=== PATIENT | female | born 1985 | race Caucasian/White ===

== ENCOUNTER 2019-12-12 09:16 | Inpatient (IN) ==
[2019-12-12 09:46] LABS: URINE SOURCE VOIDED
[2019-12-12 10:10] LABS: BILIRUBIN URINE NEGATIVE (NEGATIVE); BLOOD URINE NEGATIVE (NEGATIVE); COLOR STRAW; GLUCOSE URINE NEGATIVE (NEGATIVE); KETONE URINE NEGATIVE (NEGATIVE); LEUKOCYTES URINE LARGE (NEGATIVE); NITRITE URINE NEGATIVE (NEGATIVE); PROTEIN URINE NEGATIVE (NEGATIVE); SP GRAVITY URINE 1.007; TURBIDITY URINE HAZY (CLEAR); UROBILINOGEN URINE NORMAL (NORMAL)
--- NOTE | 2019-12-12 11:29 | Diag Imaging Result Doc PS360 ---
EXAM: US OBS COMPLETE > 14 WKS INDICATION: Amniotic fluid volume TECHNIQUE: COMPARISON: 10/18/2019 FINDINGS: There is a single viable intrauterine gestation. The presentation is cephalic. The cervix is closed and measures up to 3.1 cm in length. Limited images of the fetus show no gross anomalies. movement was reported by the e commerce architect. FHR-136 bpm AL-16.93 cm Clinical GA-37 weeks 1 day IMPRESSION: Amnionic fluid index within normal limits. Electronically signed by Adarsh Perez 12/12/2019 11:26 AM
[2019-12-12] MEDS: LR 1,000 ML IV SCH ×2 (13:05→13:45)
[2019-12-12] MEDS ORDERED: PEPCID IV PRN (13:17)
[2019-12-12] MEDS ORDERED: STADOL IV PRN (13:17)
[2019-12-12] MEDS ORDERED: LR 500 ML IV ONE (13:17)
[2019-12-12] MEDS ORDERED: ZOFRAN IV PRN (13:17)
[2019-12-12] MEDS ORDERED: PEPCID PO PRN ×2 (13:17)
[2019-12-12] MEDS ORDERED: REGLAN PO PRN (13:17)
[2019-12-12] MEDS ORDERED: TYLENOL PO PRN (13:17)
[2019-12-12] MEDS ORDERED: KEFZOL 2 GM/D5W 2 GM/50 ML IVPB IV PRN (13:17)
[2019-12-12] MEDS ORDERED: PITOCIN 30 UNITS/NS 30 UNIT/500 ML IV.SOLN IV SCH ×2 (13:30→17:45)
[2019-12-12] MEDS ORDERED: SODIUM CHLORIDE 0.9% INJ SCH (13:30)
[2019-12-12 13:39] LABS: BASO# 0.02 X1000 (0.0-0.2); BASO% 0.2 % (0.0-0.8); EOS# 0.02 X1000 (0.0-0.7); EOS% 0.2 % (0.0-10.0); HEMATOCRIT 34.1 % (37.0-47.0); HEMOGLOBIN 11.1 g/dL (12.0-16.0); IMM GRAN# 0.04 X1000 (0.0-0.04); IMM GRAN% 0.5 % (0.0-0.5); LYMPH# 1.55 X1000 (1.2-3.4); LYMPH% 18.6 % (20.5-51.1); MCH 28.5 PG (27-31); MCHC 32.6 g/dL (33-37); MCV 87.7 FL (81-99); MONO# 0.29 X1000 (0.11-0.59); MONO% 3.5 % (1.7-9.3); MPV 12.2 FL (7.4-10.4); NEUT# 6.41 X1000 (1.4-6.5); PLT 219 X1000 (130-400); RBC 3.89 XMIL (4.2-5.4); RDW 16.1 % (11.5-14.5); WBC 8.33 X1000 (4.8-10.8)
[2019-12-12] MEDS ORDERED: FENTANYL INJ ONE (13:45)
[2019-12-12] MEDS ORDERED: NAROPIN 0.2% INJ ONE (13:45)
[2019-12-12] MEDS ORDERED: FENTANYL-BUPIV-NS 500 MCG-0.125% 250 ML EPIDURAL SCH (14:00)
--- NOTE | 2019-12-12 14:24 | HISTORY AND PHYSICAL ---
HISTORY OF PRESENT STAY: Mrs. Arteaga is a 34-year-old, G3, P0-2-0-2, at 37 weeks and 1 day who presents to Labor and Delivery with concern for premature rupture of membranes. The patient presents from office visit where vaginal exam was performed and greenish discharge suggestive of meconium was noted on exam and concern for rupture of membrane was addressed. On presentation to Labor and Delivery, ROM Plus was performed and found to be negative. Also an ultrasound was performed to assess amniotic fluid index which was noted at 16 cm with a maximum vertical pocket greater than 2 cm. However, after completion of ultrasound to assess AL, the patient reported regular contractions and feeling as if she was in labor. The patient was kept on the monitor and re-examined. In the office the patient was noted to be 4 cm dilated, 70% effaced, and -2 station. In Labor and Delivery the patient made cervical change to 7 cm dilated, 90% effaced, and -2 station. Decision was made to admit patient for labor. Patient's history is significant for delivery x2 and current was complicated by contractions occurring at 33 weeks which patient received betamethasone x2. LABS: Initial labs showed rubella nonimmune. RPR nonreactive. Hepatitis B nonreactive. Hepatitis C nonreactive. HIV nonreactive. Blood type A positive. Antibody screen negative. Gonorrhea and Chlamydia negative. Urine drug screen negative. ALLERGIES: No known drug allergies. MEDICATIONS: vitamins. PAST MEDICAL HISTORY: Noncontributory. PAST SURGICAL HISTORY: Appendectomy, tonsillectomy. BUTT PRESSER HISTORY: Menarche at age 15. No STD exposure. Last menstrual period March 27, 2019. OBSTETRICAL HISTORY: G3, P0-2-0-2. Two prior deliveries. First still delivery on April 12, 2013 at 39 weeks, female weighing 6 pounds 3.2 ounces. No complications and a spontaneous vaginal delivery. Second delivered on October 10, 2016 at 35 weeks, male weighing 6 pounds 4.8 ounces. No complications with spontaneous vaginal delivery. FAMILY HISTORY: Mother with breast cancer. Maternal grandmother breast cancer. Paternal grandmother breast cancer. SOCIAL HISTORY: Denies tobacco, alcohol, or drug use. PHYSICAL EXAMINATION: VITAL SIGNS: Temperature 98.5 degrees Fahrenheit, pulse rate 84, respiration rate 18, blood pressure 110/69, oxygen saturation 98% on room air. Height 5 feet 3 inches, weight 131 pounds, body mass index 23 kg/m2. GENERAL: No acute distress. Alert, awake, oriented x3. RESPIRATION: Clear to auscultation bilaterally. Negative rhonchi, rales, or wheezing. CARDIOVASCULAR: Regular rate and rhythm. Positive S1, S2. ABDOMEN: Soft, gravid, nontender to palpation. EXTREMITIES: No calf tenderness. No edema. PELVIC: Vaginal exam, 7 cm dilated, 90% effaced, -2 station. Electronic monitoring category 1 tracing. ASSESSMENT: Mrs. Arteaga is a 34-year-old, G3, P0-2-0-2, at 37 weeks and 1 day who presents to Labor and Delivery in active labor. PLAN: 1. Admit to Labor and Delivery. 2. Obtain routine labor labs. 3. Continuous monitoring. 4. Estimated weight 6.5 pounds. 5. Anticipate vaginal delivery. 6. Pain management with IV pain medications and/or epidural. 7. Patient counseled on risks, benefits, and alternatives to procedure. Risks not limited to infection, bleeding, vaginal laceration, vacuum delivery, or emergency section. Patient understands the risks and agrees to procedure. [facility]
--- NOTE | 2019-12-12 16:06 | OB/GYN PROGRESS NOTE ---
- Subjective Pt seen and examined. Reports pain well controlled s/p epidural. Reports FM, +CTX, -LOF, -VB OB Physical Exam Vital Signs - 8 hr 12/12/19 09:40 Temperature 98.5 F Pulse Rate 84 Respiratory Rate 18 Blood Pressure 110/69 O2 Sat by Pulse Oximetry 98 - CONSTITUTIONAL General Appearance: appears well, alert, no apparent distress - GENITOURINARY Vaginal Exam: AROM, clear Cervica Dilation: 7 Cervical Effacement: 90% Station: -1 Active Medications Generic Name Dose Route Start Last Admin Trade Name Freq PRN Reason Stop Dose Admin Acetaminophen 650 mg 12/12/19 13:17 Tylenol PO Q4-6H PRN PRN Headache Butorphanol Tartrate 2 mg 12/12/19 13:17 Stadol IV PRN PRN Pain Famotidine 40 mg 12/12/19 13:17 Pepcid PO Q12H PRN PRN GI upset or indigestion Famotidine 20 mg 12/12/19 13:17 Pepcid IV Q12H PRN PRN GI upset or indigestion Famotidine 20 mg 12/12/19 13:17 Pepcid PO ONCE PRN PRN section Lactated Ringer's 1,000 mls @ 125 mls/hr 12/12/19 13:30 12/12/19 13:45 Lr IV 125 mls/hr .Q8H AYE Administration Oxytocin/Sodium Chloride 30 unit in 500 mls @ 0 mls/hr 12/12/19 13:30 Pitocin 30 Units/Ns IV .Q0M AYE As Directed Cefazolin Sodium/Dextrose 2 gm in 50 mls @ 50 mls/hr 12/12/19 13:17 Kefzol 2 Gm/D5w IV ONCE PRN PRN section Fentanyl/Bupivacaine/Sodium Chlor 250 mls @ 0 mls/hr 12/12/19 14:00 12/12/19 14:20 Uxcldbti-Mjpup-Fd 500 Mcg-0.125% EPIDURAL 12 mls/hr DIRECTED AYE Administration As Directed Metoclopramide HCl 10 mg 12/12/19 13:17 Reglan PO ONCE PRN PRN section Ondansetron HCl 4 mg 12/12/19 13:17 12/12/19 15:47 Zofran IV 4 mg PRN PRN Administration Nausea Sodium Chloride 5 - 10 ml 04/02/20 13:30 Sodium Chloride 0.9% INJ DIRECTED AYE Laboratory Results - last 24 hr 12/12/19 12/12/19 12/12/19 09:41 09:41 13:05 WBC RBC Hgb Hct MCV MCH MCHC RDW Std Deviation Plt Count MPV Immature Gran % (Auto) Neut % (Auto) Lymph % (Auto) [place] % (Auto) Eos % (Auto) Baso % (Auto) Immature Gran # (Auto) Neut # (Auto) Lymph # (Auto) [place] # (Auto) Eos # (Auto) Baso # (Auto) Urine Source VOIDED Urine Color STRAW Urine Turbidity HAZY Urine pH 6.0 Ur Specific [place] 1.007 Urine Protein NEGATIVE Ur Glucose (Stick) NEGATIVE Ur Ketones (Stick) NEGATIVE Urine Blood NEGATIVE Urine Nitrite NEGATIVE Urine Bilirubin NEGATIVE Urobilinogen Dipstick NORMAL Urine Leukocytes LARGE A Membranes Rupture NEGATIVE RPR NON-REACTIVE 12/12/19 13:05 WBC 8.33 RBC 3.89 L Hgb 11.1 L Hct 34.1 L MCV 87.7 MCH 28.5 MCHC 32.6 L RDW Std Deviation 16.1 H Plt Count 219 MPV 12.2 H Immature Gran % (Auto) 0.5 Neut % (Auto) 77.0 H Lymph % (Auto) 18.6 L [place] % (Auto) 3.5 Eos % (Auto) 0.2 Baso % (Auto) 0.2 Immature Gran # (Auto) 0.04 Neut # (Auto) 6.41 Lymph # (Auto) 1.55 [place] # (Auto) 0.29 Eos # (Auto) 0.02 Baso # (Auto) 0.02 Urine Source Urine Color Urine Turbidity Urine pH Ur Specific [place] Urine Protein Ur Glucose (Stick) Ur Ketones (Stick) Urine Blood Urine Nitrite Urine Bilirubin Urobilinogen Dipstick Urine Leukocytes Membranes Rupture RPR OB Assessment & Plan (1) Active labor at term Status: Acute Plan: 34yo at 37w1d in active labor -s/p epidural -Augmentation wiht AROM - clear fluid -con't EFM -consider pitocin if no cervical change -con't active mgt -anticipate vaginal delivery
[2019-12-12] MEDS ORDERED: PITOCIN IM PRN (17:41)
[2019-12-12] MEDS ORDERED: HYDROXYZINE IM PRN (17:41)
[2019-12-12] MEDS ORDERED: BENADRYL PO PRN (17:41)
[2019-12-12] MEDS ORDERED: AMBIEN PO PRN (17:41)
[2019-12-12] MEDS ORDERED: PERI MEDS (DERMOPLAST/NUPERCAINAL/TUCKS) MISC PRN (17:41)
[2019-12-12] MEDS ORDERED: ATARAX PO PRN (17:41)
[2019-12-12] MEDS ORDERED: BOOSTRIX VACCINE IM ONE (17:41)
[2019-12-12] MEDS ORDERED: MINERAL OIL PO PRN (17:41)
[2019-12-12] MEDS ORDERED: NORCO-5 PO PRN (17:41)
[2019-12-12] MEDS ORDERED: XYLOCAINE-MPF 1% INJ PRN (17:41)
[2019-12-12] MEDS ORDERED: CYTOTEC PO PRN (17:41)
[2019-12-12] MEDS ORDERED: M-M-R II VACCINE SUBQ ONE (17:41)
[2019-12-12] MEDS ORDERED: BENADRYL IV PRN (17:41)
[2019-12-12] MEDS ORDERED: PITOCIN 20 UNITS/NS 20 UNITS/1,000 ML IV.SOLN IV SCH (17:45)
[2019-12-12 18:43] LABS: UR AMPHETAMINES QUAL NONE DETECTED (NONE DETECT); UR BARBITUATES QUAL NONE DETECTED (NONE DETECT); UR BENZODIAZEPIN QUAL NONE DETECTED (NONE DETECT); UR CANNABINOIDS QUAL NONE DETECTED (NONE DETECT); UR COCAINE QUAL NONE DETECTED (NONE DETECT); UR METHADONE QUAL NONE DETECTED (NONE DETECT); UR OPIATES QUAL NONE DETECTED (NONE DETECT); UR OXYCODONE QUAL NONE DETECTED (NONE DETECT); UR PCP QUAL NONE DETECTED (NONE DETECT)
[2019-12-12] MEDS: PERICOLACE PO SCH (20:32)
[2019-12-12] MEDS: MOTRIN PO PRN (20:33)
[2019-12-13] MEDS: MOTRIN PO PRN ×2 (04:20→15:53)
[2019-12-13] MEDS: LR 1,000 ML IV SCH ×2 (04:28→06:38)
[2019-12-13] MEDS: PRECARE PO SCH ×2 (04:29→08:22)
[2019-12-13 05:08] LABS: BASO# 0.02 X1000 (0.0-0.2); BASO% 0.2 % (0.0-0.8); EOS# 0.08 X1000 (0.0-0.7); EOS% 0.7 % (0.0-10.0); HEMATOCRIT 32.7 % (37.0-47.0); HEMOGLOBIN 10.3 g/dL (12.0-16.0); IMM GRAN# 0.05 X1000 (0.0-0.04); IMM GRAN% 0.4 % (0.0-0.5); LYMPH# 2.34 X1000 (1.2-3.4); MCH 28.3 PG (27-31); MCHC 31.5 g/dL (33-37); MCV 89.8 FL (81-99); MONO# 0.46 X1000 (0.11-0.59); MONO% 4.1 % (1.7-9.3); MPV 12.4 FL (7.4-10.4); NEUT# 8.19 X1000 (1.4-6.5); NEUT% 73.6 % (42.2-75.2); PLT 213 X1000 (130-400); RBC 3.64 XMIL (4.2-5.4); RDW 15.9 % (11.5-14.5); WBC 11.14 X1000 (4.8-10.8)
[2019-12-13] MEDS: PERCOCET-5 PO PRN ×4 (05:39→21:49)
--- NOTE | 2019-12-13 07:27 | OB/GYN PROGRESS NOTE ---
- Subjective Pt is a 34yo PPD#1 s/p . Reports severe abdominal cramping overnight, however resolved with Percocet. Admits to ambulating and urinating without difficulty. Reports decreased lochia. Tolerating regular diet. Denies fever, chills, nausea/vomiting. OB Physical Exam Vital Signs - 8 hr 12/12/19 23:30 12/13/19 03:09 Temperature 97.4 F L 97.8 F Pulse Rate 75 50 L Respiratory Rate 18 18 Blood Pressure 115/62 131/82 O2 Sat by Pulse Oximetry 69 L 100 - CONSTITUTIONAL General Appearance: appears well, alert, no apparent distress - GASTROINTESTINAL (ABDOMEN) Abdominal Exam: non tender (FF below umbilicus), soft - GENITOURINARY Female Genitalia/Pelvic Exam: external exam normal (decreased lochia) - MUSCULOSKELETAL Extremity: no calf tenderness - SKIN Integumentary: normal color, normal turgor, warm/dry - PSYCHIATRIC Psych/Mental Status: normal mood/affect, oriented x 3 Active Medications Generic Name Dose Route Start Last Admin Trade Name Freq PRN Reason Stop Dose Admin Acetaminophen 650 mg 12/12/19 13:17 Tylenol PO Q4-6H PRN PRN Headache Hydrocodone Bitart/Acetaminophen 1 each 12/12/19 17:41 12/13/19 03:08 [place]-5 PO 1 each Q3-4H PRN PRN Administration Pain (1-6 on Pain Scale) Benzocaine 1 each 12/12/19 17:41 [place] Meds (Dermoplast/Nupercainal/Tucks) MISC 3-4XDAY PRN PRN episiotomy/hemorrhoids Butorphanol Tartrate 2 mg 12/12/19 13:17 Stadol IV PRN PRN Pain Diphenhydramine HCl 12.5 mg 12/12/19 17:41 Benadryl IV Q4H PRN PRN Itching Diphenhydramine HCl 25 mg 12/12/19 17:41 Benadryl PO Q4H PRN PRN Itching Famotidine 40 mg 12/12/19 13:17 Pepcid PO Q12H PRN PRN GI upset or indigestion Famotidine 20 mg 12/12/19 13:17 Pepcid IV Q12H PRN PRN GI upset or indigestion Famotidine 20 mg 12/12/19 13:17 Pepcid PO ONCE PRN PRN section Hydroxyzine HCl 50 mg 12/12/19 17:41 Atarax PO Q3-4H PRN PRN Nausea Hydroxyzine HCl 50 mg 12/12/19 17:41 Hydroxyzine IM Q3-4H PRN PRN Nausea Lactated Ringer's 1,000 mls @ 125 mls/hr 12/12/19 13:30 12/13/19 06:38 Lr IV Not Given .Q8H AYE Oxytocin/Sodium Chloride 30 unit in 500 mls @ 0 mls/hr 12/12/19 13:30 Pitocin 30 Units/Ns IV .Q0M AYE As Directed Cefazolin Sodium/Dextrose 2 gm in 50 mls @ 50 mls/hr 12/12/19 13:17 Kefzol 2 Gm/D5w IV ONCE PRN PRN section Fentanyl/Bupivacaine/Sodium Chlor 250 mls @ 0 mls/hr 12/12/19 14:00 12/12/19 14:20 Ruotfbax-Zjicx-Os 500 Mcg-0.125% EPIDURAL 12 mls/hr DIRECTED AYE Administration As Directed Oxytocin/Sodium Chloride 20 units in 1,000 mls @ 0 mls/hr 12/12/19 17:45 Pitocin 20 Units/Ns IV .Q0M AYE As Directed Ibuprofen 800 mg 12/12/19 17:41 12/13/19 04:20 Motrin PO 800 mg Q8H PRN PRN Administration cramping Lidocaine HCl 30 ml 12/12/19 17:41 Xylocaine-Mpf 1% INJ PRN PRN Perineal repair Metoclopramide HCl 10 mg 12/12/19 13:17 Reglan PO ONCE PRN PRN section Mineral Oil 30 ml 12/12/19 17:41 Mineral Oil PO PRN PRN Perineal massage Misoprostol 800 microgm 12/12/19 17:41 Cytotec PO PRN PRN Severe bleeding Ondansetron HCl 4 mg 12/12/19 13:17 12/12/19 15:47 Zofran IV 4 mg PRN PRN Administration Nausea Oxycodone/Acetaminophen 1 each 12/13/19 05:28 12/13/19 05:39 Percocet-5 PO 1 each Q4H PRN PRN Administration Pain Oxytocin 20 unit 12/12/19 17:41 Pitocin IM PRN PRN Severe bleeding Multivit/Folic Acid/Iron 1 each 12/12/19 17:45 12/13/19 04:29 Precare PO Not Given DAILY AYE Senna/Docusate Sodium 1 each 12/12/19 21:00 12/12/19 20:32 Pericolace PO 1 each QHS AYE Administration Sodium Chloride 5 - 10 ml 12/12/19 13:30 Sodium Chloride 0.9% INJ DIRECTED AYE Zolpidem Tartrate 10 mg 12/12/19 17:41 Ambien PO HS PRN PRN Sleep Laboratory Results - last 24 hr 12/12/19 12/12/19 12/12/19 09:25 09:41 09:41 WBC RBC Hgb Hct MCV MCH MCHC RDW Std Deviation Plt Count MPV Immature Gran % (Auto) Neut % (Auto) Lymph % (Auto) [place] % (Auto) Eos % (Auto) Baso % (Auto) Immature Gran # (Auto) Neut # (Auto) Lymph # (Auto) [place] # (Auto) Eos # (Auto) Baso # (Auto) Urine Source VOIDED Urine Color STRAW Urine Turbidity HAZY Urine pH 6.0 Ur Specific [place] 1.007 Urine Protein NEGATIVE Ur Glucose (Stick) NEGATIVE Ur Ketones (Stick) NEGATIVE Urine Blood NEGATIVE Urine Nitrite NEGATIVE Urine Bilirubin NEGATIVE Urobilinogen Dipstick NORMAL Urine Leukocytes LARGE A Membranes Rupture NEGATIVE Urine Opiates Screen NONE DETECTED Ur Oxycodone Screen NONE DETECTED Ur Methadone, Qual NONE DETECTED Ur Barbiturates Screen NONE DETECTED Ur Phencyclidine Scrn NONE DETECTED Ur Amphetamines Screen NONE DETECTED U Benzodiazepines Scrn NONE DETECTED Urine Cocaine Screen NONE DETECTED U Cannabinoids Screen NONE DETECTED RPR Blood Type Antibody Screen Crossmatch ([facility]) 12/12/19 12/12/19 12/12/19 13:05 13:05 13:05 WBC 8.33 RBC 3.89 L Hgb 11.1 L Hct 34.1 L MCV 87.7 MCH 28.5 MCHC 32.6 L RDW Std Deviation 16.1 H Plt Count 219 MPV 12.2 H Immature Gran % (Auto) 0.5 Neut % (Auto) 77.0 H Lymph % (Auto) 18.6 L [place] % (Auto) 3.5 Eos % (Auto) 0.2 Baso % (Auto) 0.2 Immature Gran # (Auto) 0.04 Neut # (Auto) 6.41 Lymph # (Auto) 1.55 [place] # (Auto) 0.29 Eos # (Auto) 0.02 Baso # (Auto) 0.02 Urine Source Urine Color Urine Turbidity Urine pH Ur Specific [place] Urine Protein Ur Glucose (Stick) Ur Ketones (Stick) Urine Blood Urine Nitrite Urine Bilirubin Urobilinogen Dipstick Urine Leukocytes Membranes Rupture Urine Opiates Screen Ur Oxycodone Screen Ur Methadone, Qual Ur Barbiturates Screen Ur Phencyclidine Scrn Ur Amphetamines Screen U Benzodiazepines Scrn Urine Cocaine Screen U Cannabinoids Screen RPR NON-REACTIVE Blood Type A POSITIVE Antibody Screen NEGATIVE Crossmatch ([facility]) See Detail 12/13/19 04:50 WBC 11.14 H RBC 3.64 L Hgb 10.3 L Hct 32.7 L MCV 89.8 MCH 28.3 MCHC 31.5 L RDW Std Deviation 15.9 H Plt Count 213 MPV 12.4 H Immature Gran % (Auto) 0.4 Neut % (Auto) 73.6 Lymph % (Auto) 21.0 [place] % (Auto) 4.1 Eos % (Auto) 0.7 Baso % (Auto) 0.2 Immature Gran # (Auto) 0.05 H Neut # (Auto) 8.19 H Lymph # (Auto) 2.34 [place] # (Auto) 0.46 Eos # (Auto) 0.08 Baso # (Auto) 0.02 Urine Source Urine Color Urine Turbidity Urine pH Ur Specific [place] Urine Protein Ur Glucose (Stick) Ur Ketones (Stick) Urine Blood Urine Nitrite Urine Bilirubin Urobilinogen Dipstick Urine Leukocytes Membranes Rupture Urine Opiates Screen Ur Oxycodone Screen Ur Methadone, Qual Ur Barbiturates Screen Ur Phencyclidine Scrn Ur Amphetamines Screen U Benzodiazepines Scrn Urine Cocaine Screen U Cannabinoids Screen RPR Blood Type Antibody Screen Crossmatch ([facility]) OB Assessment & Plan (1) Vaginal delivery Status: Acute Plan: 34yo PPD#1 s/p at 37.1wks -HD stable -reg diet -PO pain meds with ibuprofen and percocet -OOB to ambulation -Countine routine PP care
--- NOTE | 2019-12-13 07:37 | OPERATIVE NOTE ---
PROCEDURE DATE: 12/12/2019 SURGEON: Tracy Lambert DO. MELT SUPERVISOR: None. PROCEDURE PERFORMED: Spontaneous vaginal delivery. DESCRIPTION OF PROCEDURE: The patient delivered a viable 37 week and 2 day male fetus weighing 6 pounds 10 ounces with Apgars of 9 and 10 at one and five minutes respectively. The vertex was delivered spontaneously over intact perineum. No nuchal cord was identified. Anterior shoulders were delivered atraumatically by maternal expulsive efforts with the assistance of downward traction. The posterior shoulder delivered with maternal expulsive efforts and upward traction. The remainder of the fetus delivered spontaneously. Upon delivery, the fetus was bulb suction. The cord was clamped and cut, and the infant was passed off to waiting box repairer staff. Cord blood was obtained for analysis. The placenta delivered spontaneously intact with a three-vessel cord. To enhance uterine contractions, IV oxytocin was administered. The cervix, vagina and perineum were inspected for lacerations. No lacerations were noted. ESTIMATED BLOOD LOSS: 150 mL.
[2019-12-13] MEDS: PERICOLACE PO SCH (21:49)
[2019-12-14] MEDS: MOTRIN PO PRN (04:48)
[2019-12-14] MEDS: PERCOCET-5 PO PRN (04:48)
--- NOTE | 2019-12-14 07:40 | OB/GYN PROGRESS NOTE ---
- Subjective Pt is a 34yo PPD#2 s/p . Reports some abdominal cramping overnight. Admits to ambulating and urinating without difficulty. Reports decreased lochia. Tolerating regular diet. She is bottle feeding exclusively. OB Physical Exam Vital Signs - 8 hr 12/14/19 04:50 Pulse Rate 60 Respiratory Rate 16 Blood Pressure 133/64 O2 Sat by Pulse Oximetry 98 - CONSTITUTIONAL General Appearance: appears well - HEAD, EARS, NOSE, MOUTH & THROAT HENMT: normocephalic/atraumatic - RESPIRATORY Respiratory: lungs clear - CARDIOVASCULAR Cardiovascular: regular rate, rhythm - CHEST (BREASTS) Chest/Breast: deferred - GASTROINTESTINAL (ABDOMEN) Abdominal Exam: non tender, soft (Uterus at the umbilicus) - MUSCULOSKELETAL Extremity: non-tender, no pedal edema - SKIN Integumentary: normal color - NEUROLOGIC Neurologic: grossly normal - PSYCHIATRIC Psych/Mental Status: normal mood/affect Active Medications Generic Name Dose Route Start Last Admin Trade Name Freq PRN Reason Stop Dose Admin Acetaminophen 650 mg 12/12/19 13:17 Tylenol PO Q4-6H PRN PRN Headache Hydrocodone Bitart/Acetaminophen 1 each 12/12/19 17:41 12/13/19 03:08 [place]-5 PO 1 each Q3-4H PRN PRN Administration Pain (1-6 on Pain Scale) Benzocaine 1 each 12/12/19 17:41 [place] Meds (Dermoplast/Nupercainal/Tucks) MISC 3-4XDAY PRN PRN episiotomy/hemorrhoids Diphenhydramine HCl 25 mg 12/12/19 17:41 Benadryl PO Q4H PRN PRN Itching Famotidine 40 mg 12/12/19 13:17 Pepcid PO Q12H PRN PRN GI upset or indigestion Famotidine 20 mg 12/12/19 13:17 Pepcid PO ONCE PRN PRN section Hydroxyzine HCl 50 mg 12/12/19 17:41 Atarax PO Q3-4H PRN PRN Nausea Hydroxyzine HCl 50 mg 12/12/19 17:41 Hydroxyzine IM Q3-4H PRN PRN Nausea Ibuprofen 800 mg 12/12/19 17:41 12/14/19 04:48 Motrin PO 800 mg Q8H PRN PRN Administration cramping Metoclopramide HCl 10 mg 12/12/19 13:17 Reglan PO ONCE PRN PRN section Misoprostol 800 microgm 12/12/19 17:41 Cytotec PO PRN PRN Severe bleeding Oxycodone/Acetaminophen 1 each 12/13/19 05:28 12/14/19 04:48 Percocet-5 PO 1 each Q4H PRN PRN Administration Pain Oxytocin 20 unit 12/12/19 17:41 Pitocin IM PRN PRN Severe bleeding Multivit/Folic Acid/Iron 1 each 12/12/19 17:45 12/13/19 08:22 Precare PO 1 each DAILY AYE Administration Senna/Docusate Sodium 1 each 12/12/19 21:00 12/13/19 21:49 Pericolace PO 1 each QHS AYE Administration Zolpidem Tartrate 10 mg 12/12/19 17:41 Ambien PO HS PRN PRN Sleep OB Assessment & Plan (1) Vaginal delivery Status: Acute Plan: Patient doing well and wants to go home. She meets criteria. Discharge instructions given.
[2019-12-14 07:59] VITALS: BP 135/76
--- NOTE | 2019-12-14 08:37 | DISCHARGE SUMMARY ---
ADMISSION DATE: 12/12/2019 DISCHARGE DATE: 12/14/2019 ADMITTING DIAGNOSIS: Spontaneous labor at 37 weeks. PROCEDURE PERFORMED: Normal spontaneous delivery. COMPLICATIONS: None. FINAL DIAGNOSIS: Status post normal spontaneous vaginal delivery at 37 weeks 2 days. The patient is a 34-year-old G 3, P 1-2-0-3, who came in on the and delivered a male fetus weighing 6 pounds 10 ounces with Apgars of 9 and 10. She did well and is able to be discharged today after her baby's circumcision. DISCHARGE INSTRUCTIONS: Light activity, no exercise, pelvic rest, no tub baths or pools for 2 weeks, call for increased bleeding or fever, ER instructions given as well. Diet: Advance as tolerated. MEDICATIONS: See medication reconciliation discharge. DISPOSITION: To home. FOLLOWUP: Will be with Dr. Lambert. cc: Sonny Dickson DO
[2019-12-14] MEDS: PRECARE PO SCH (09:28)
== END 2019-12-14 12:00 | disposition home or self-care (01) | DRG 807 ==
LOC: OPLD 09:16 → LD 09:17
PROVIDERS: ADMIT Obstetrics & Gynecology; ATTEND Obstetrics & Gynecology